=== PATIENT | male | born 1945 | race Caucasian/White ===

== ENCOUNTER 2018-09-03 06:55 | Day surgery (SDC) | payer OTHER ==
[2018-08-28 12:00] LABS: Absolute Lymphocytes (CBC) 0.9 K/uL (0.7-4.9); Absolute Monocytes 0.8 K/uL (0.1-1.3); Absolute Neutrophil 5.5 K/uL (1.8-8.0); Basophils % 0.9 % (0-1.3); Eosinophils % 1.8 % (0-4.4); Hematocrit 33.7 % (39.6-49.0); Lymphocytes % 11.9 % (15.3-44.8); MCV 85.1 fL (80-100); MPV 8.1 fL (7.6-11.3); RBC Red Blood Cell Count 3.97 M/uL (4.33-5.43)
--- NOTE | 2018-08-28 12:10 | RAD REPORT ---
EXAM DESCRIPTION: RAD - Chest Pa And Lat (2 Views) - 08/28/2018 12:03 pm CLINICAL HISTORY: PRE OP Chest pain. COMPARISON: Chest Pa And Lat (2 Views) dated 02/27/2018; Chest Pa And Lat (2 Views) dated 08/02/2017; Chest Pa And Lat (2 Views) dated 04/12/2016; CHEST PA AND LAT 2 VIEW dated 05/26/2014 FINDINGS: Emphysematous changes present. Linear scarring is present in the right middle lobe. The he art is normal in size. No displaced fractures. IMPRESSION: Prominent COPD.
[2018-08-28 12:15] LABS: Protime INR 1.8
[2018-08-28 12:19] LABS: Potassium 3.9 mmol/L (3.5-5.1)
[2018-09-03] MEDS ORDERED: FENTANYL CITR 100 MCG/2 ML ONE (07:15)
[2018-09-03] MEDS ORDERED: HEPARIN 5000 UNIT/ML 1 ML VIAL ONE (07:15)
[2018-09-03] MEDS ORDERED: HEPA 1000U/500MLS 2,000 UNIT/1,000 ML BAG IV ONE (07:15)
[2018-09-03] MEDS ORDERED: MIDAZOLAM HCL 2 MG/2 ML INJ ONE ×2 (07:15→08:03)
[2018-09-03] MEDS ORDERED: ATROPINE SULF 1 MG/10 ML SYR IV ONE (07:16)
[2018-09-03] MEDS ORDERED: LIDOCAINE 1% MPF 30 ML VIAL ONE (07:16)
[2018-09-03] MEDS ORDERED: NA CHLORIDE 0.9% 500 ML ONE (07:23)
--- NOTE | 2018-09-03 19:10 | OP ---
Surgeon: Roney Tom MD Additional Attending Physician: Dr. Lopez. Procedure: Abdominal aortogram with runoffs. There was no angioplasty or other intervention done. Findings: The patient's aorta, kidney arteries, iliac arteries, common femoral arteries, superficial femoral arteries are completely free of disease. The popliteal arteries had 30% to 40% plaques. Th e right peroneal artery was totally occluded. Both anterior tibial arteries and posterior tibial art eries were completely normal. The left peroneal artery was normal. There was no indication for an i ntervention. Procedure In Detail: The patient had symptoms suggestive of claudication. Arterial Doppler suggeste d some degree of PAD, so we did an arteriogram for diagnostic purposes. Right femoral artery was use d. The patient gave us informed consent, was brought to the cardiac helper animal laboratory in a fasting state, pre pared and draped in usual sterile fashion. 15 cc of 1% lidocaine were used to anesthetize the skin o mica the right femoral artery. It was entered using an 18-gauge needle. Modified Seldinger technique with a short J-wire allowed us to put a 4-Guatem[place] sheath. We used this to do the angiogram. We shaniqua ogramed using a 4-Guatem[place] straight pigtail. At the end of the procedure, the pigtail was removed over a J-wire. Arteriogram was done at an angle of the right femoral artery. We closed the arteriotomy using an Angio-Seal device. There were no complications from the procedure. ANTHONY/MADDISON Voice ID: [id number] Report ID: [id number]
== END 2018-09-03 12:31 | disposition home or self-care (01) ==
LOC: CCL 06:55
PROVIDERS: ATTEND Internal Medicine
DX: I70.213 Atherosclerosis of native arteries of extremities with intermittent claudication, bilateral legs (principal); I70.92 Chronic total occlusion of artery of the extremities; I10 Essential (primary) hypertension; I48.91 Unspecified atrial fibrillation; E78.2 Mixed hyperlipidemia; Z87.891 Personal history of nicotine dependence
CPT/HCPCS: 36200; 36415; 71046; 75630; 80048; 85025; 85610; 85730; C1760; C1893; J2250 ×2; J3010; J1644

== ENCOUNTER 2020-12-02 13:00 | Emergency (ER) | payer OTHER ==
--- NOTE | 2020-12-02 14:09 | RAD REPORT ---
EXAM DESCRIPTION: CT - Head Brain Wo Cont - 12/02/2020 1:56 pm CLINICAL HISTORY: WEAKNESS Headache, drowsiness COMPARISON: No comparisons TECHNIQUE: All CT scans are performed using dose optimization technique as appropriate and may inclu de automated exposure control or mA/KV adjustment according to patient size. FINDINGS: No intracranial hemorrhage, hydrocephalus or extra-axial fluid collection. Moderate diffus e brain atrophy. No areas of brain edema or evidence of midline shift. The paranasal sinuses and mastoids are clear. The calvarium is intact. IMPRESSION: No acute intracranial abnormality.
--- NOTE | 2020-12-02 14:56 | RAD REPORT ---
EXAM DESCRIPTION: US - Extrem Venous W Compress Ryan - 12/02/2020 2:28 pm CLINICAL HISTORY: Pain;Swelling Bilateral leg edema and swelling. COMPARISON: Extrem Venous W Compress Ryan dated 10/05/2020 TECHNIQUE: Real-time sonographic interrogation of the left and right lower extremity deep venous sys tems was performed. FINDINGS: Normal compressibility, flow augmentation, phasic flow and spontaneous flow is identified in both the left and right lower extremity deep venous systems. IMPRESSION: No sonographic evidence of left or right lower extremity deep venous thrombosis.
[2020-12-02 15:08] LABS: Absolute Lymphocytes (CBC) 0.5 K/uL (0.7-4.9); Basophils % 0.4 % (0-1.3); Hematocrit 27.8 % (39.6-49.0); Lymphocytes % 5.5 % (15.3-44.8); MPV 7.2 fL (7.6-11.3); RBC Red Blood Cell Count 3.31 M/uL (4.33-5.43)
[2020-12-02 15:09] LABS: Protime INR 1.42
--- NOTE | 2020-12-02 15:09 | RAD REPORT ---
EXAM DESCRIPTION: US - Lower Extremity Arterial Bilat - 12/02/2020 2:27 pm CLINICAL HISTORY: Pain;Swelling Bilateral leg pain. COMPARISON: No comparisons TECHNIQUE: Bilateral lower extremity arterial Doppler examination was performed with vickie martínez FINDINGS: Significant peripheral vascular disease is present in both lower extremity arterial systems. The right common femoral artery demonstrates moderate calcified focal plaque. The right common femora l artery is largely triphasic in terms of waveforms with mild elevation of peak systolic velocity at the level of the focal hard plaque. Proximal right SFA, mid right SFA and distal right SFA demonstrat e mild flow abnormality with blunted amplitude and mild hard plaquing noted. Quite severe hard plaque is present in right popliteal artery with near occlusion suspected and monop hasic blunted right popliteal waveform. Flow distal to the right popliteal vessel is quite attenuated with blunted monophasic waveform in the right posterior tibial artery seen. The left common femoral artery demonstrates quite severe atheromatous plaquing and near occlusion. Di seased monophasic waveform is seen throughout the left superficial femoral artery, popliteal artery a nd dorsalis pedis artery with heavy plaquing present throughout the vessels. 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 Moderate to severe right popliteal artery atheromatous plaquing with near occlusion and significant d iminished and diseased distal flow.
--- NOTE | 2020-12-02 15:18 | RAD REPORT ---
EXAM DESCRIPTION: RAD - Chest Single View - 12/02/2020 3:12 pm CLINICAL HISTORY: edema Chest pain. COMPARISON: Chest Pa And Lat (2 Views) dated 08/28/2018; Chest Pa And Lat (2 Views) dated 02/27/2018; Chest Pa And Lat (2 Views) dated 08/02/2017; Chest Pa And Lat (2 Views) dated 04/12/2016 FINDINGS: Portable technique limits examination quality. A right pleural effusion is suspected appears normal in size. Underlying right base infiltrate not ex cluded. Emphysematous changes are present throughout the lungs. The heart is moderately enlarged in s ize.
[2020-12-02 16:00] LABS: ALT/SGPT 21 U/L (12-78); AST/SGOT 25 U/L (15-37); Albumin 2.4 g/dL (3.4-5.0); Alkaline Phosphatase 53 U/L (45-117); BUN Blood Urea Nitrogen 10 mg/dL (7-18); Bicarbonate 25 mmol/L (21-32); Bilirubin Direct 0.1 mg/dL (0-0.2); Bilirubin Total 0.3 mg/dL (0.2-1.0); Glucose Level 94 mg/dL (74-106); Magnesium 2.3 mg/dL (1.8-2.4); NT PRO-BNP 2071 pg/mL (<125); Potassium 3.9 mmol/L (3.5-5.1); Protein, Total 5.7 g/dL (6.4-8.2); Sodium Level 139 mmol/L (136-145); Troponin (Emerg Dept Use Only) < 0.02 ng/mL (0.0-0.045)
--- NOTE | 2020-12-02 16:03 | ER ---
Nurse's Notes [facility] Name: Cj Rodriguez Age: 75 yrs Sex: Male : 1945 Arrival Date: 12/02/2020 Time: 13:08 Bed 5 Private MD: Diagnosis: Peripheral vascular disease, unspecified-with resting pain;Chronic atrial fibrillation;Gastrointestinal hemorrhage, unspecified;Anemia in chronic diseases classified elsewhere Presentation: 12/02 13:15 Chief complaint: Patient states: Bilateral leg swelling for 1 month, worse on the R. ll1 Yellow drainage noted to R sock. No fever. Coronavirus screen: Client denies travel out of the [place] in the last 14 days. At this time, the client does not indicate any symptoms associated with coronavirus-19. Ebola Screen: Patient denies travel to an Ebola-affected area in the 21 days before illness onset. No acute neurological deficit is noted. Initial Sepsis Screen: Does the patient meet any 2 criteria? No. Patient's initial sepsis screen is negative. Does the patient have a suspected source of infection? Yes: Skin breakdown/wound. Risk Assessment: Do you want to hurt yourself or someone else? Patient reports no desire to harm self or others. Onset of symptoms was October 27, 2020. 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 - Social history:: Smoking status: Patient denies any tobacco usage or history of. Screenin:11 Abuse screen: Denies threats or abuse. Denies injuries from another. Nutritional hb screening: No deficits noted. Tuberculosis screening: No symptoms or risk factors identified. Fall Risk None identified. Assessment: 13:42 Reassessment: Pt to radiology via stretcher. hb 14:42 Reassessment: Pr returned from radiology. hb 14:45 General: Appears in no apparent distress. Behavior is calm, cooperative. Pain: Pain hb currently is 6 out of 10 on a pain scale. Neuro: Level of Consciousness is awake, alert, obeys commands, Oriented to person, place, time, situation. Cardiovascular: Capillary refill < 3 seconds Patient's skin is warm and dry. Respiratory: Airway is patent Respiratory effort is even, unlabored, Respiratory pattern is regular, symmetrical. GI: No signs and/or symptoms were reported involving the gastrointestinal system. : No signs and/or symptoms were reported regarding the genitourinary system. EENT: No signs and/or symptoms were reported regarding the EENT system. Derm: Skin is pink, warm \T\ dry. BLE 3+ pitting edema noted. Musculoskeletal: Reports BLE pain. 15:45 Reassessment: Patient appears in no apparent distress at this time. Patient and/or hb family updated on plan of care and expected duration. Pain level reassessed. Patient is alert, oriented x 3, equal unlabored respirations, skin warm/dry/pink. 16:00 Reassessment: Patient appears in no apparent distress at this time. No changes from previously documented assessment. Patient and/or family updated on plan of care and expected duration. Pain level reassessed. 17:15 Reassessment: Patient appears in no apparent distress at this time. No changes from previously documented assessment. Patient and/or family updated on plan of care and expected duration. Pain level reassessed. Patient is alert, oriented x 3, equal unlabored respirations, skin warm/dry/pink. 18:15 Reassessment: Patient appears in no apparent distress at this time. Patient and/or hb family updated on plan of care and expected duration. Pain level reassessed. Patient is alert, oriented x 3, equal unlabored respirations, skin warm/dry/pink. 18:49 Reassessment: Attempted to call report to [facility], nurse has not been assigned yet, requested a call back in 20 min. Vital Signs: 13:15 BP 130 / 57; Pulse 79; Resp 18; Temp 98.6; Weight 79.38 kg; Height 5 ft. 11 in. (180.34 ll1 cm); Pain 7/10; 14:45 BP 145 / 66; Pulse 70; Resp 17; Pulse Ox 99% on R/A; hb 15:45 BP 152 / 69; Pulse 91; Resp 17; Pulse Ox 97% on R/A; Pain 6/10; hb 16:30 BP 148 / 68; Pulse 90; Resp 15; Pulse Ox 99% on R/A; hb 17:30 BP 142 / 69; Pulse 92; Resp 17; Pulse Ox 97% on R/A; Pain 8/10; hb 18:18 BP 142 / 63; Pulse 89; Resp 15; Pulse Ox 99% on R/A; hb 20:27 BP 137 / 69; Pulse 76; Resp 18; Pulse Ox 100% on R/A; rv 13:15 Body Mass Index 24.41 (79.38 kg, 180.34 cm) ll1 ED Course: 13:08 Patient arrived in ED. am4 13:17 Triage completed. ll1 13:18 Arm band placed on Patient placed in an exam room, on a stretcher. ll1 13:30 Donta Wray PA is PHCP. cp 13:30 Asad Garcia MD is Attending Physician. cp 13:56 CT Head Brain wo Cont In Process Unspecified. EDMS 14:13 Sara Neri, RN is Primary Nurse. hb 14:27 US LE Arterial Bilateral In Process Unspecified. EDMS 14:28 US Extremity Venous W Compression Ryan In Process Unspecified. EDMS 14:41 Patient moved back from ultrasound. sv 14:46 Inserted saline lock: 20 gauge in left antecubital area, using aseptic technique. Blood hb collected. 15:12 XRAY Chest (1 view) In Process Unspecified. EDMS 15:14 Patient has correct armband on for positive identification. Bed in low position. Call hb light in reach. Side rails up X 1. 15:38 EKG done, by ED staff, reviewed by Donta GUZMÁN. dh3 16:02 Rey Garcia MD is Hospitalizing Provider. cp Administered Medications: 16:02 Drug: fentaNYL (PF) 25 mcg Route: IVP; Site: left antecubital; hb 16:45 Follow up: Response: No adverse reaction hb 16:29 Drug: Lasix 20 mg Route: IVP; Site: left antecubital; hb 17:15 Follow up: Response: No adverse reaction hb 17:30 Drug: ProTONIX 40 mg Route: IVP; Site: left antecubital; hb 18:17 Follow up: Response: No adverse reaction hb 17:30 Drug: Zosyn 3.375 grams Route: IVPB; Infused Over: 60 mins; Site: left antecubital; hb 18:16 Follow up: Response: No adverse reaction; IV Status: Completed infusion; IV Intake: hb 100ml 17:35 Drug: fentaNYL (PF) 25 mcg Route: IVP; Site: left antecubital; hb 18:17 Follow up: Response: No adverse reaction hb 18:17 Drug: ProTONIX 8 mg/hr Route: IV; Rate: 25 ml/hr; Site: left antecubital; hb 18:38 Drug: morphine 4 mg Route: IVP; Site: left antecubital; hb 20:26 Follow up: Response: No adverse reaction; RASS: Alert and Calm (0) rv 20:25 Drug: morphine 4 mg {Note: rass 0.} Route: IVP; Site: left antecubital; rv 20:26 Follow up: Response: Medication administered at discharge. rv Intake: 18:16 IV: 100ml; Total: 100ml. hb 19:00 PO: 0ml; Total: 100ml. hb Output: 19:00 Urine: 1400ml (Voided); Total: 1400ml. hb Outcome: 16:03 Decision to Hospitalize by Provider. cp 17:01 ER care complete, transfer ordered by MD. cp 20:26 Patient left the ED. mw2 Signatures: Dispatcher [employer] EDShwetha Isaac RN RN Donta Goldsmith PA PA cp Baxter, Heather RN RN Krystle Jackson 3 Jhony Kumar mw2 Yobany Calles RN RN rv Seema Mendoza RN RN Shelby Mora [facility]
--- NOTE | 2020-12-02 16:04 | EDPHYS ---
Physician Documentation [facility] Name: Cj Rodriguez Age: 75 yrs Sex: Male : 1945 Arrival Date: 12/02/2020 Time: 13:08 Bed 5 Private MD: ED Physician Asad Garcia HPI: 12/02 13:35 This 75 yrs old Male presents to ER via Wheelchair with complaints of Leg cp Swelling, Weakness. 13:35 The patient presents to the emergency department with weakness of the right leg and cp left leg. 13:35 Onset: The symptoms/episode began/occurred gradually, and became worse 1 month(s) ago. cp Associated signs and symptoms: Pertinent positives: drainage from wounds on legs. 13:35 Patient's baseline: Neuro: alert and fully oriented, Motor: no deficits, Ambulation: cp walks without assistance, Speech: normal. Current symptoms: general weakness. 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 - Social history:: Smoking status: Patient denies any tobacco usage or history of. ROS: 13:40 Constitutional: Negative for body aches, chills, fever, poor PO intake. cp 13:40 Cardiovascular: Positive for edema, Negative for chest pain, palpitations. cp 13:40 Respiratory: Negative for cough, shortness of breath, wheezing. 13:40 Abdomen/GI: Negative for abdominal pain, nausea, vomiting, and diarrhea. 13:40 MS/extremity: Positive for pain, of the right leg and left leg. 13:40 Neuro: Positive for weakness, of the right leg and left leg, general weakness, Negative for altered mental status, headache, syncope. 13:40 Back: Negative for pain at rest, pain with movement. cp 13:40 All other systems are negative. Exam: 13:45 Constitutional: The patient appears in no acute distress, alert, awake, cp non-diaphoretic, non-toxic, well developed, well nourished. 13:45 Head/Face: Normocephalic, atraumatic. cp 13:45 Eyes: Periorbital structures: appear normal, Conjunctiva: normal, no exudate, no injection, Sclera: no appreciated abnormality, Lids and lashes: appear normal, bilaterally. 13:45 ENT: External ear(s): are unremarkable, Nose: is normal, Mouth: Lips: moist, Oral mucosa: moist, Posterior pharynx: Airway: no evidence of obstruction, patent. 13:45 Neck: ROM/movement: is normal, is supple, without pain, no range of motions limitations. 13:45 Chest/axilla: Inspection: normal, Palpation: is normal, no crepitus, no tenderness. 13:45 Cardiovascular: Rate: normal, Rhythm: irregular, Edema: ankle edema, that is mild, JVD: is not appreciated. 13:45 Respiratory: the patient does not display signs of respiratory distress, Respirations: normal, no use of accessory muscles, no retractions, labored breathing, is not present, Breath sounds: are clear throughout, no decreased breath sounds. 13:45 Abdomen/GI: Inspection: abdomen appears normal, Bowel sounds: active, all quadrants, Palpation: abdomen is soft and non-tender, in all quadrants, rebound tenderness, is not appreciated, voluntary guarding, is not appreciated, involuntary guarding, is not appreciated. 13:45 Back: pain, is absent, ROM is normal. 13:45 Musculoskeletal/extremity: Extremities: noted in the right leg and left leg: erythema, pain, swelling, multiple superficial wounds noted, most notably to left heel and right great toe, Perfusion: the extremity is poor, very faint dorsalis pedis pulse right foot and left foot, the left lower leg and right lower leg Severe pain noted. right arm below the elbow amputee. 13:45 Neuro: Orientation: to person, place \T\ time. Mentation: is normal, Motor: moves all fours, strength is normal. 15:33 : Rectal exam: Stool: black, Guaiac testing: results were positive for occult blood, cp hemorrhoid(s), external. 15:45 ECG was reviewed by the Attending Physician. cp Vital Signs: 13:15 BP 130 / 57; Pulse 79; Resp 18; Temp 98.6; Weight 79.38 kg; Height 5 ft. 11 in. (180.34 ll1 cm); Pain 7/10; 14:45 BP 145 / 66; Pulse 70; Resp 17; Pulse Ox 99% on R/A; hb 15:45 BP 152 / 69; Pulse 91; Resp 17; Pulse Ox 97% on R/A; Pain 6/10; hb 16:30 BP 148 / 68; Pulse 90; Resp 15; Pulse Ox 99% on R/A; hb 17:30 BP 142 / 69; Pulse 92; Resp 17; Pulse Ox 97% on R/A; Pain 8/10; hb 18:18 BP 142 / 63; Pulse 89; Resp 15; Pulse Ox 99% on R/A; hb 20:27 BP 137 / 69; Pulse 76; Resp 18; Pulse Ox 100% on R/A; rv 13:15 Body Mass Index 24.41 (79.38 kg, 180.34 cm) ll1 MDM: 13:35 Patient medically screened. cp 16:17 Physician consultation: Darrick Tobias MD was called at 16:17, was contacted at 16:17, cp regarding consult, patient's condition, would like admission per Dr. Rey Garcia MD Discussed patient with Aga who will notify DR Tobias. 17:00 Data reviewed: vital signs, nurses notes, lab test result(s), EKG, radiologic studies, cp CT scan, ultrasound. 17:00 Physician consultation: Asad Garcia MD after a discussion of the case, a recommendation cp for transfer for higher level of care is made, in the emergency department to see patient at 16:45, for vascular surgery evaluation. 17:20 Physician consultation: was contacted at 17:21, regarding regarding transfer, to [facility]. patient's condition, spoke with DR Romeo, vascular surgery, who will consult on patient and requests transfer to hospitalist services. 18:10 Physician consultation: was contacted at 18:00, regarding regarding transfer, to [facility]. patient's condition, accepting physician will be DR Corey. 12/02 13:37 Order name: Basic Metabolic Panel; Complete Time: 16:01 cp 12/02 16:16 Interpretation: Normal except: CL 108. cp 12/02 13:37 Order name: CBC with Diff cp 12/02 15:24 Interpretation: Normal except: RBC 3.31; HGB 8.6; HCT 27.8; MCH 25.9; MCHC 30.8; RDW cp 20.0; MPV 7.2; LOTUS% 87.7; LYM% 5.5; LYMA 0.5. 12/02 13:37 Order name: LFT's; Complete Time: 16:01 cp 12/02 13:37 Order name: Magnesium; Complete Time: 16:01 cp 12/02 13:37 Order name: NT PRO-BNP; Complete Time: 16:01 cp 12/02 13:37 Order name: PT-INR; Complete Time: 15:24 cp 12/02 13:37 Order name: Troponin (emerg Dept Use Only); Complete Time: 16:01 cp 12/02 13:37 Order name: XRAY Chest (1 view); Complete Time: 15:24 cp 12/02 13:37 Order name: US Extremity Venous W Compression Ryan; Complete Time: 15:24 cp 12/02 13:40 Order name: Urine Microscopic Only; Complete Time: 17:17 cp 12/02 16:04 Order name: Urine Dipstick--Ancillary (enter results); Complete Time: 16:15 sp 12/02 17:49 Order name: Type And Screen 12/02 19:26 Order name: SARS-COV-2 RT PCR EDMS 12/02 13:37 Order name: EKG; Complete Time: 13:38 cp 12/02 13:37 Order name: Cardiac monitoring; Complete Time: 14:48 cp 12/02 13:37 Order name: EKG - Nurse/Tech; Complete Time: 16:20 cp 12/02 13:37 Order name: IV Saline Lock; Complete Time: 14:48 cp 12/02 13:37 Order name: Labs collected and sent; Complete Time: 15:14 cp 12/02 13:37 Order name: O2 Per Protocol; Complete Time: 15:14 cp 12/02 13:37 Order name: US LE Arterial Bilateral; Complete Time: 15:24 cp 12/02 15:27 Interpretation: Report reviewed. 12/02 13:39 Order name: CT Head Brain wo Cont; Complete Time: 15:24 cp 12/02 13:37 Order name: O2 Sat Monitoring; Complete Time: 15:14 cp 12/02 13:40 Order name: Urine Dipstick-Ancillary (obtain specimen); Complete Time: 16:20 cp EC:45 Rate is 88 beats/min. Rhythm is irregular. QRS interval is normal. QT interval is cp normal. T waves are Inverted in lead V2. Interpreted by me. Reviewed by me. Administered Medications: 16:02 Drug: fentaNYL (PF) 25 mcg Route: IVP; Site: left antecubital; hb 16:45 Follow up: Response: No adverse reaction hb 16:29 Drug: Lasix 20 mg Route: IVP; Site: left antecubital; hb 17:15 Follow up: Response: No adverse reaction hb 17:30 Drug: ProTONIX 40 mg Route: IVP; Site: left antecubital; hb 18:17 Follow up: Response: No adverse reaction hb 17:30 Drug: Zosyn 3.375 grams Route: IVPB; Infused Over: 60 mins; Site: left antecubital; hb 18:16 Follow up: Response: No adverse reaction; IV Status: Completed infusion; IV Intake: hb 100ml 17:35 Drug: fentaNYL (PF) 25 mcg Route: IVP; Site: left antecubital; hb 18:17 Follow up: Response: No adverse reaction hb 18:17 Drug: ProTONIX 8 mg/hr Route: IV; Rate: 25 ml/hr; Site: left antecubital; hb 18:38 Drug: morphine 4 mg Route: IVP; Site: left antecubital; hb 20:26 Follow up: Response: No adverse reaction; RASS: Alert and Calm (0) rv 20:25 Drug: morphine 4 mg {Note: rass 0.} Route: IVP; Site: left antecubital; rv 20:26 Follow up: Response: Medication administered at discharge. rv Disposition: 20:30 Chart complete. cp Disposition: 12/02/20 17:01 Transfer ordered to [facility]. Diagnosis are Peripheral vascular disease, unspecified - with resting pain, Chronic atrial fibrillation, Gastrointestinal hemorrhage, unspecified, Anemia in chronic diseases classified elsewhere. - Reason for transfer: Higher level of care. - Accepting physician is DR Tam Corey. - Condition is Fair. - Problem is new. - Symptoms have improved. Addendum: 12/05/2020 10:06 Co-signature as Attending Physician, Asad Garcia MD. r n Signatures: Dispatcher [employer] EDDE Asad Garcia MD MD rn Page, Corey, PA PA Sara Nelson RN RN Jhony Kumar mw2 Yobany Calles, RN RN rv Seema Mendoza RN RN ll1 Corrections: (The following items were deleted from the chart) 12/02 17:00 16:03 Hospitalization Ordered by Rey Garcia MD for Inpatient Admission. Preliminary cp diagnosis is Anemia in chronic diseases classified elsewhere; Gastrointestinal hemorrhage, unspecified; Chronic atrial fibrillation. Bed requested for Telemetry/MedSurg (Inpatient). Status is Inpatient Admission. Condition is Fair. Problem is new. Symptoms have improved. cp 18:24 16:59 CORONAVIRUS+MR.LAB.BRZ ordered. EDMS EDMS 19:00 17:01 12/02/2020 17:01 Transfer ordered to [facility]. cp Diagnosis is Peripheral vascular disease, unspecified - with resting pain; Chronic atrial fibrillation; Gastrointestinal hemorrhage, unspecified. Reason for transfer: Higher level of care. Accepting physician is Doctor. Condition is Fair. Problem is new. Symptoms have improved. cp 20:26 19:00 12/02/2020 17:01 Transfer ordered to [facility]. mw2 Diagnosis is Peripheral vascular disease, unspecified - with resting pain; Chronic atrial fibrillation; Gastrointestinal hemorrhage, unspecified; Anemia in chronic diseases classified elsewhere. Reason for transfer: Higher level of care. Accepting physician is DR Tam Corey. Condition is Fair. Problem is new. Symptoms have improved. cp 12/03 19:39 12/02 13:40 Neuro: Positive for weakness, of the right leg and left leg, Negative for cp altered mental status, headache, syncope, cp
[2020-12-02 16:05] LABS: Urine Blood NEGATIVE (NEG); Urine Glucose NEGATIVE (NEG); Urine Protein NEGATIVE (NEG)
[2020-12-02] MEDS ORDERED: FENTANYL CITR 100 MCG/2 ML ONE ×2 (16:11→17:46)
[2020-12-02] MEDS ORDERED: FUROSEMIDE 20 MG/ 2ML VIAL ONE (16:27)
[2020-12-02 16:54] LABS: Urine Bacteria <20 /HPF (NONE SEEN); Urine RBC <5 /HPF (NONE SEEN)
--- NOTE | 2020-12-02 16:59 | P.CNS ---
Date of Consult: 12/02/20 Reason for Consult: Lower leg swelling/pain, melena Requesting Physician: Donta Wray Chief Complaint: b/l leg pain History of Present Illness: 75yo M, PMH: HTN, AFIB on xarelto, PAD, chronic lower leg edema who presents to ED due to worsening swelling, pain, and ulcers of his R and L foot. He reports this has been ongoing for 1.5 yrs, managed by his PCP, however significantly worsened over the past 2 weeks. He reports a negative DVT U/S ~1 month ago. He reports b/l legs have been weeping some clear-yellowish fluid. Pain is no severe at rest and even worse with walking, now to the point where he is having great difficulty with ambulation. Workup in ED revealed Hemoglobin: 8.6, no leukocytosis, CMP rather unremarkable, elevated BNP: 2071. Lower extremity arterial Doppler revealed severe left common femoral artery plaquing resulting in significant stenosis in distal diminished monophasic flow. Moderate to severe right popliteal artery plaquing with near occlusion and significant diminished in disease distal flow. Allergies levofloxacin [From Levaquin] Allergy (Verified 08/28/18 11:26) SWELLING OF LEGS Home Medications: Acetylcarnitin/Alpha Lipoic AC [Acetyl i-Jqjdmbabw-Amjpbt Acid] 1 each PO DAILY 08/28/18 Calcium Carb, Citrate/Vit D3 [Citracal + D ER Tablet] 1 each PO DAILY 08/28/18 Diltiazem HCl [Cardizem Cd] 240 mg PO DAILY AFTER SUPPER 08/28/18 Fenofibrate [Tricor] 145 mg PO DAILY 08/28/18 Fexofenadine HCl [Prachi Allergy] 180 mg PO DAILY 08/28/18 Fluticasone [Flovent Hfa 110] 1 spray IH BID 08/28/18 Fluticasone/Salmeterol [Advair 250-50 Diskus] 2 each IH DAILY 08/28/18 Guaifenesin [Liquituss GG] 10 ml PO TID 08/28/18 Losartan Potassium [Cozaar] 50 mg PO DAILY 08/28/18 Montelukast [Singulair] 5 mg PO DAILY 08/28/18 Multivit-Minerals/FA/Lycopene [One Daily Men's Health Tablet] 1 each PO DAILY 08/28/18 Rivaroxaban [Xarelto] 20 mg PO DAILY 08/28/18 Simvastatin 20 mg PO DAILY 08/28/18 Ubidecarenone/Vit E Acet [Co Q-10 100 mg Softgel] 1 each PO DAILY 08/28/18 Vitamin E 400 unit PO DAILY 08/28/18 - Past Medical/Surgical History -: Hypertension -: AFib on anticoagulation -: Peripheral artery disease -: Right hand amputation -: Appendectomy -: "Neck surgery" - Social History Smoking Status: Former smoker (Quit 12 years ago) Place of Residence: Home Review of Systems 10-point ROS is otherwise unremarkable Physical Examination General: Alert, In no apparent distress, Oriented x3 HEENT: Sclerae nonicteric Respiratory: Clear to auscultation bilaterally Cardiovascular: Edema (2+ pitting bilaterally to knees), Irregular heart rate/rhythm (afib, HR: 70s) Gastrointestinal: Soft and benign, Non-distended, No tenderness Musculoskeletal: Other (unable to palpate bilateral PT/DP. b/l feet with some wa rmth, toes cool to touch) Integumentary: Other (2 ulcerations noted on R foot on big toe with ~1cm surrounding erythema, tender to palpation, no active drainage. Smaller erythema and ulceration on 2nd R toe. A few scattered shallow lesiosn with clear weeping on legs.) Laboratory Data (last 24 hrs) 12/02/20 14:46: PT 16.6 H, INR 1.42 12/02/20 14:46: WBC 8.5, Hgb 8.6 L, Hct 27.8 L, Plt Count 310 12/02/20 14:46: Sodium 139, Potassium 3.9, BUN 10, Creatinine 0.70, Glucose 94, Magnesium 2.3, Total Bilirubin 0.3, AST 25, ALT 21, Alkaline Phosphatase 53 Physician Review Additional Text: Bilateral feet swelling / ulcerations PAD Afib on xarelto Hemoccult positive stool / melena HTN -reviewed imaging, concerned that Abx / local wound care would not be enough for patient given severity of arterial stenosis / near occlusion -reviewed over phone with general surgery -Dr. Jenkins, who recommended transfer to tertiary care center with vascular surgery as patient will need surgical intervention - bypass vs stenting -discussed with ED staff and recommended transfer -patient does not appear to have critical limb ischemia at this time, however difficult to ascertain the extent of his pain being due to ischemia vs ulcerations. Some of the pain is in locations without ulcerations /skin findings. Time Spent Managing Pts care (In Minutes): 60
[2020-12-02] MEDS ORDERED: SODIUM CHLORIDE 0.9% 10ML INJ IV ONE (17:00)
[2020-12-02] MEDS ORDERED: PANTOPRAZOLE 40 MG INJ IV ONE (17:00)
[2020-12-02] MEDS ORDERED: PANTOPRAZOLE INJ 80 MG in NA CHLORIDE 0.9% 250 ML IV SCH (17:00)
[2020-12-02] MEDS ORDERED: PIPER/TAZO/NS 3.375gm 3.375 GM/100 ML BAG ONE (17:16)
[2020-12-02] MEDS ORDERED: MORPHINE 4 MG/ML SYR ONE ×2 (18:50→20:21)
[2020-12-02 20:34] VITALS: TEMP 98.6
[2020-12-02 20:41] VITALS: BP 137/69; O2SAT 100
[2020-12-02 21:51] LABS: Anisocytosis 2+; Blood Morphology Comment NOTED (NOT SEEN); Platelet Estimate ADEQ; White Blood Cell Scan OK (OK)
== END 2020-12-02 20:26 | disposition short-term general hospital (02) ==
LOC: ER 13:00
DX: I73.9 Peripheral vascular disease, unspecified (principal); I48.20 Chronic atrial fibrillation, unspecified; K92.2 Gastrointestinal hemorrhage, unspecified; D63.8 Anemia in other chronic diseases classified elsewhere; L97.519 Non-pressure chronic ulcer of other part of right foot with unspecified severity; I10 Essential (primary) hypertension; Z20.822 Contact with and (suspected) exposure to COVID-19; Z88.3 Allergy status to other anti-infective agents; Z79.01 Long term (current) use of anticoagulants; Z87.891 Personal history of nicotine dependence
CPT/HCPCS: 85025; 80048; 36415; 86900; 83735; 86850; 85610; 86901; 80076; 84484; 83880; 70450; 71045; 93925; 93970; U0003; J1940; C9113 ×2; J3010 ×2; J2543; J7050; 81003; 81015; 96365; 96375; 99284